=== PATIENT | female | born 1985 | race Caucasian/White ===

== ENCOUNTER 2018-09-30 09:18 | Emergency (ER) | payer BC ==
--- NOTE | 2018-09-30 11:06 | UC ---
Abdominal Pain Female HPI - HPI Summary HPI Summary: 33-year-old woman comes in with a chief complaint of lower abdominal pain. Past history. Was September. Patient was running initially if the pain was due to ovulation which she does sometimes have pain with. She also had some vaginal dark blood spotting which she's had before with ovulation. Since that time she's been having suprapubic and right lower quadrant pain intermittently. When it happens it's severe. No fevers or chills. No abnormal vaginal discharge. She did have a laparoscopic surgery for endometriosis years ago. She did have 1 miscarriage is 15 weeks a few years ago. Otherwise no surgeries. She has good appetite. No nausea. No burning with urination no flank pain. Yesterday morning after having a bowel movement the bowel movement was difficult the stool was hard and the pain did decrease after the bowel movement. Similar episode happened this morning. - History of Current Complaint Chief Complaint: UCAbdominalPain Stated Complaint: ABD PAIN Time Seen by Provider: 09/30/18 10:26 Hx Last Menstrual Period: 09/12/18 Pain Intensity: 2 Allergies/Adverse Reactions: Allergies Allergy/AdvReac Type Severity Reaction Status Date / Time sulfamethoxazole Allergy Unknown Verified 09/30/18 09:42 [From Bactrim] Reaction Details trimethoprim [From Bactrim] Allergy Unknown Verified 09/30/18 09:42 Reaction Details PMH/Surg Hx/FS Hx/Imm Hx Previously Healthy: Yes - MISCARRIAGE SEVERAL YEARS AGO - Surgical History Surgical History: Yes Surgery Procedure, Year, and Place: laperoscopic for endometriosis - Family History Known Family History: Positive: None - denies heart disease or DM. - Social History Alcohol Use: Rare Substance Use Type: None Smoking Status (MU): Never Smoked Tobacco Review of Systems All Other Systems Reviewed And Are Negative: Yes Constitutional: Positive: Negative Skin: Positive: Negative Eyes: Positive: Negative ENT: Positive: Negative Respiratory: Positive: Negative Cardiovascular: Positive: Negative Gastrointestinal: Positive: Abdominal Pain Genitourinary: Positive: Negative Motor: Positive: Negative Neurovascular: Positive: Negative Musculoskeletal: Positive: Negative Neurological: Positive: Negative Psychological: Positive: Negative Is Patient Immunocompromised?: No Physical Exam Triage Information Reviewed: Yes Appearance: Well-Appearing, No Pain Distress, Well-Nourished Vital Signs: Initial Vital Signs Temp 99.2 F 09/30/18 09:34 Pulse 74 09/30/18 09:34 Resp 16 09/30/18 09:34 BP 120/82 09/30/18 09:34 Pulse Ox 98 09/30/18 09:34 Vital Signs Reviewed: Yes Eye Exam: Normal Eyes: Positive: Conjunctiva Clear Neck: Positive: Supple Respiratory: Positive: Lungs clear, Normal breath sounds, No respiratory distress Cardiovascular: Positive: RRR Abdomen Description: Positive: Nontender, Soft. Negative: CVA Tenderness (R), CVA Tenderness (L) Bowel Sounds: Positive: Present Musculoskeletal Exam: Normal Musculoskeletal: Positive: Strength Intact, ROM Intact Neurological Exam: Normal Neurological: Positive: Alert, Muscle Tone Normal Psychological Exam: Normal Psychological: Positive: Age Appropriate Behavior Skin Exam: Normal Abd Pain Female Course/Dx - Course Course Of Treatment: Patient Name: DAVID HAHN Medical Record#: [id number] Ordering Physician: Larry Alexander MD Acct.#: [id number] : 1985 Age: 33 Sex: F Location: [facility] Exam Date: 09/30/18 1056 ADM Status: [facility] ER Order Information: US TRANSVAGINAL Accession Number: [id number] CPT: 39429 Indication: Suprapubic right lower quadrant pain. Real-time sonography of the pelvis was performed utilizing endovaginal technique. The uterus measures 6.6 x 3.7 x 5.0 cm and is retroverted. Endometrial echo measures up to 14 mm likely thickened due to phase of patient's menstrual cycle. The right ovary is mildly enlarged measuring 5.6 x 2.5 x 3.5 cm with likely hemorrhagic cyst in the right ovary measuring 3.1 x 2.0 x 2.6 cm. Left ovary measures 3.4 x 1.7 x 2.2 cm with follicles. Doppler interrogation demonstrates flow in both ovaries. IMPRESSION: Hemorrhagic cyst right ovary measuring 3.1 x 2.0 x 2.6 cm. <Electronically signed by Ginny Hair MD in OV> 09/30/18 1158 Patient Name: DAVID HAHN Medical Record#: [id number] Ordering Physician: Larry Alexander MD Acct.#: [id number] : 1985 Age: 33 Sex: F Location: [facility] Exam Date: 09/30/18 1056 ADM Status: REG ER Order Information: US APPENDIX Accession Number: [id number] CPT: 11875 Indication: Right lower quadrant pain. Graded compression sonography of the right lower quadrant was performed utilizing a high frequency linear transducer. The appendix is not visualized. No free fluid is identified. IMPRESSION: Appendix not visualized. No free fluid. <Electronically signed by Ginny Hair MD in OV> 09/30/18 1156 I discussed the ultrasound reports with the patient I discussed the ultrasound report with the patient. No evidence of torsion at this time. I discussed the diagnosis of hemorrhagic ovarian cyst include the possibility of rupture and further bleeding. At the patient know that if she had any fevers excessive pain felt like she was got a pass out she needs to get reevaluated again right away. Patient does see Dr. Ramos for [employer] [facility] [facility] [employer] and will be following up with him. - Differential Dx/Diagnosis Provider Diagnosis: Hemorrhagic cyst of right ovary, Right lower quadrant abdominal pain Discharge - Sign-Out/Discharge Documenting (check all that apply): Patient Departure All imaging exams completed and their final reports reviewed: Yes - Discharge Plan Condition: Stable Disposition: HOME Patient Education Materials: Ovarian Cyst (ED), Acute Abdominal Pain (ED) Referrals: Lucy Connell NP [Primary Care Provider] - Ameya Cuellar MD [Medical Doctor] - Additional Instructions: FOLLOW UP WITH YOUR OBGYN. GET RECHECKED SOONER IF YOUR CONDITION WORSENS; PAIN, FEVER, YOU FEEL LIKE PASSING OUT OR ANY QUESTIONS OR CONCERNS. - Billing Disposition and Condition Condition: STABLE Disposition: Home
[2018-09-30 11:52] VITALS: BP 120/71
== END 2018-09-30 12:40 | disposition home or self-care (01) ==
LOC: UCEAST 09:18
DX: N83.201 Unspecified ovarian cyst, right side (principal); R10.31 Right lower quadrant pain; Z88.2 Allergy status to sulfonamides
CPT/HCPCS: 76705; 76830; 81003; 84702; 99211; G0463